=== PATIENT | male | born 1960 | race Two or more races ===

== ENCOUNTER 2023-05-02 08:43 | Outpatient (CLI) | payer OTHER | END 2023-05-02 08:57 | disposition home or self-care (01) | LOC: SONOGRAMA 08:43 | PROVIDERS: ATTEND Internal Medicine | DX: R10.9 Unspecified abdominal pain (principal); R07.9 Chest pain, unspecified ==

== ENCOUNTER 2024-06-03 11:54 | Inpatient (IN) | payer OTHER ==
[~2024-06-03] VITALS: Ht 175.3 cm; Wt 83.9 kg
[2024-06-03 12:42] LABS: D DIMER 2.82 MG/L; INR 1.09; PROTHROMBIN TIME 11.8 SECONDS (9.0-11.5)
[2024-06-03 12:44] LABS: HEMATOCRIT 27.3 % (39.0-48.0); MEAN CELL VOLUME 86.5 fL (80.0-100.00); MEAN CORPUSCULAR HGB CONC 28.9 g/dl (32.0-36.0); RED BLOOD COUNT 3.16 M/uL (4.00-6.00); RED CELL DISTRIBUTION WIDTH 21.6 % (11.5-14.5)
[2024-06-03 12:45] LABS: ERYTHROCYTE SEDIMENTATION RATE 30 mm/hr
[2024-06-03 13:16] LABS: PLATELET COUNT 32 K/uL (150-450)
[2024-06-03 13:17] LABS: HEMOGLOBIN 7.9 g/dL (13-16.00)
[2024-06-03 13:53] LABS: ALBUMIN 3.9 gm/dL (3.4-5.0); BILIRUBIN TOTAL 0.48 mg/dL (0.3-1.2); CALCIUM 9.6 mg/dL (8.5-10.1); CREATININE SERUM 1.09 mg/dL (0.70-1.30); GFR 67.89; GLOBULINA 3.8 G/DL (2.4-3.5); POTASSIUM 3.85 mEq/L (3.5-5.1); TOTAL PROTEIN 7.7 gm/dL (6.4-8.2)
[2024-06-03 13:58] LABS: C-REACTIVE PROTEIN 1.59 MG/DL (0.00-0.29)
[2024-06-03] MEDS ORDERED: RINGERS SOLUTION,LACTATED 1,000 ML IV SCH (15:30)
[2024-06-03 16:00] VITALS: BP 118/72; O2SAT 95
[2024-06-03] MEDS ORDERED: HYDROXYUREA 500 MG CAP PO SCH (17:00)
[2024-06-04 08:57] VITALS: BP 116/75; O2SAT 98
[2024-06-04] MEDS ORDERED: VITAMIN B COMPLEX 1 EACH PO SCH (09:00)
[2024-06-04 16:35] VITALS: BP 117/70; O2SAT 97
[2024-06-04 21:53] LABS: HEMATOCRIT 26.1 % (39.0-48.0); MEAN CELL VOLUME 83.9 fL (80.0-100.00); MEAN CORPUSCULAR HGB CONC 30.8 g/dl (32.0-36.0); RED BLOOD COUNT 3.11 M/uL (4.00-6.00); RED CELL DISTRIBUTION WIDTH 21.3 % (11.5-14.5)
[2024-06-04 22:19] LABS: HEMOGLOBIN 8.1 g/dL (13-16.00); PLATELET COUNT 28 K/uL (150-450)
[2024-06-05] VITALS: BP 94/56; O2SAT 97
[2024-06-05 08:00] VITALS: BP 126/81; O2SAT 99
[2024-06-05 17:03] VITALS: BP 118/71; O2SAT 99
[2024-06-05] MEDS ORDERED: LORazepam 2 MG/ML VIAL IV PUSH NR (20:00)
[2024-06-05] MEDS ORDERED: KETOROLAC TROMETHAMINE 30 MG VIAL IV NR (20:00)
[2024-06-06 00:44] VITALS: BP 115/76; O2SAT 100
[2024-06-06 08:00] VITALS: BP 131/84; O2SAT 99
[2024-06-06 08:40] LABS: HEMATOCRIT 26.5 % (39.0-48.0); MEAN CELL VOLUME 84.3 fL (80.0-100.00); MEAN CORPUSCULAR HGB CONC 31.1 g/dl (32.0-36.0); RED BLOOD COUNT 3.15 M/uL (4.00-6.00)
[2024-06-06 10:08] LABS: HEMOGLOBIN 8.2 g/dL (13-16.00)
[2024-06-06 10:22] LABS: PLATELET COUNT 25 K/uL (150-450)
[2024-06-06] MEDS ORDERED: HYDREA500 M1 PO (11:12)
[2024-06-06] MEDS ORDERED: B Complex PO (11:12)
[2024-06-07] MEDS ORDERED: IRON236 MG (10:07)
== END 2024-06-06 12:17 | disposition home or self-care (01) | DRG 836 ==
LOC: MEDJ 11:54 → SURH 14:05 → SEC-K 14:05 → SURH 14:59
PROVIDERS: ADMIT Internal Medicine Hematology & Oncology; ATTEND Internal Medicine Hematology & Oncology
PROC: 30233N1 Transfusion of Nonautologous Red Blood Cells into Peripheral Vein, Percutaneous Approach (ICD-10-PCS; principal; 2024-06-04)
DX: C92.00 Acute myeloblastic leukemia, not having achieved remission (principal); D63.0 Anemia in neoplastic disease; D69.6 Thrombocytopenia, unspecified

== ENCOUNTER 2024-06-07 09:49 | Inpatient (IN) | payer OTHER ==
[~2024-06-07] VITALS: Ht 175.3 cm; Wt 85.7 kg
[~2024-06-07 09:49] MED LIST: B Complex PO; HYDREA500 M1 PO
[2024-06-07] MEDS ORDERED: IRON236 MG (10:07)
--- NOTE | 2024-06-07 10:08 | NUR ---
PTE ALERTA Y ORIETADO X3 SALIO EN LE [facility] DE [place] POR ROLAND INTEVENCIO Y EMPEZO CON VOMITOS Y EL ULTIMO FUE ESTA MANANA A LAS 8, SE LE INOCENTE S/V Y SE UBICA EN K9
[2024-06-07] MEDS ORDERED: ONDANSETRON HCL 2 MG/ML VIAL IV STA (10:13)
[2024-06-07] MEDS ORDERED: 0.9 % SODIUM CHLORIDE 1,000 ML IV STA (10:13)
[2024-06-07] MEDS ORDERED: ONDANSETRON HCL 2 MG/ML VIAL ONE (10:19)
--- NOTE | 2024-06-07 10:30 | NUR ---
PTE ALERTA Y ORIENTADO X3 ES EVALUDO POR EL DR. FLORES. SE OIRNETA SOBRE TRATAMIENTO, VERBALIZA ENTENDER. SE CANALIZA, COLECTAN MUESTRAS DE LAB Y SE ADMINISTRA MEDICAMNETO ISAAC ORDEN MEDICA BAJO MEDIDAS ASEPTICAS. PENDIENTE SONCULTA CON DR. REZA RANGEL.
[2024-06-07] MEDS ORDERED: LIDOCAINE HCL 1%/EPINEPHRINE 20ML VIAL IJ ONE (10:33)
[2024-06-07] MEDS ORDERED: EPINEPHRINE HCL/PF 1 MG/ML AMPUL ONE (10:34)
[2024-06-07 11:06] LABS: MEAN CELL VOLUME 84.7 fL (80.0-100.00); MEAN CORPUSCULAR HGB CONC 29.7 g/dl (32.0-36.0); RED BLOOD COUNT 3.31 M/uL (4.00-6.00); RED CELL DISTRIBUTION WIDTH 20.5 % (11.5-14.5)
[2024-06-07 11:46] LABS: HEMOGLOBIN 8.3 g/dL (13-16.00)
[2024-06-07 11:47] LABS: PLATELET COUNT 37 K/uL (150-450)
[2024-06-07 11:58] LABS: ALBUMIN 3.6 gm/dL (3.4-5.0); BILIRUBIN TOTAL 0.64 mg/dL (0.3-1.2); CALCIUM 9.6 mg/dL (8.5-10.1); GFR 74.99; GLOBULINA 3.7 G/DL (2.4-3.5); POTASSIUM 3.65 mEq/L (3.5-5.1); TOTAL PROTEIN 7.3 gm/dL (6.4-8.2)
[2024-06-07] MEDS ORDERED: ACETAMINOPHEN 500 MG GEL..CAP PO ONE (12:51)
[2024-06-07 14:07] LABS: PH,URINE 6.5 (5.0-8.0); URINE APPEARANCE Clear; URINE BILIRRUBIN Negative (NEGATIVE); URINE BLOOD Trace; URINE COLOR Yellow; URINE GLUCOSE Negative (NEGATIVE); URINE KETONE Negative (NEGATIVE); URINE LEUKOCYTE Negative; URINE NITRATE Negative
[2024-06-07 14:10] LABS: URINE BACTERIA 24.4 uL (0.0-1933); URINE CAST 8.98 uL (0.0-1.40); URINE EPITHELIAL CELLS 39.8 uL (0.0-38.8); URINE RBC 5.4 uL (0.0-20.8); URINE WBC 12.3 uL (0.0-23.2)
[2024-06-07 14:53] LABS: URINE PROTEIN 100 (NEGATIVE)
[2024-06-07] MEDS ORDERED: PANTOPRAZOLE SODIUM 40 MG/VIAL VIAL IV SCH (17:17)
[2024-06-07] MEDS ORDERED: 0.9 % SODIUM CHLORIDE 1,000 ML IV SCH (17:30)
[2024-06-07] MEDS ORDERED: MULTIVIT INFUSN,ADULT 4,VIT K 10 ML VIAL IV ONE (17:30)
[2024-06-07] MEDS ORDERED: 0.9 % SODIUM CHLORIDE 1,000 ML IV ONE (17:30)
[2024-06-07] MEDS ORDERED: MORPHINE SULFATE 2 MG/ML CARTRIDGE IV PRN (17:30)
[2024-06-07] MEDS ORDERED: ONDANSETRON HCL 4 MG in 0.9 % SODIUM CHLORIDE 50 ML IV PRN (17:30)
[2024-06-07] MEDS ORDERED: PIPERACILLIN/TAZOBACTAM SODIUM 3.375 GM in DEXTROSE 5 % IN WATER 100 ML IV SCH (18:00)
[2024-06-07] MEDS ORDERED: PIPERACILLIN/TAZOBACTAM SODIUM 3.375 GM VIAL IV ONE (18:06)
[2024-06-07] MEDS ORDERED: ACETAMINOPHEN 500 MG GEL..CAP PO PRN (19:00)
[2024-06-07 19:26] VITALS: BP 128/81; O2SAT 96
[2024-06-07 19:55] LABS: D DIMER 3.91 MG/L; INR 1.15; PARTIAL THROMBOPLASTIN TIME 29.6 SECONDS (22.0-34.0); PROTHROMBIN TIME 12.4 SECONDS (9.0-11.5)
[2024-06-07] MEDS ORDERED: DEXAMETHASONE SODIUM PHOSPHATE 4 MG/ML VIAL IV STA (20:47)
[2024-06-07] MEDS ORDERED: DEXAMETHASONE SODIUM PHOSPHATE 4 MG/ML VIAL IV SCH (21:00)
[2024-06-07 21:58] VITALS: BP 119/76; O2SAT 95
[2024-06-07 23:00] VITALS: BP 125/72; O2SAT 98
[2024-06-08] VITALS (13 sets, daily range): BP systolic 99–154; BP diastolic 62–97; O2SAT 95–100
[2024-06-08] MEDS ORDERED: INSULIN LISPRO 1,000 UNIT/10 ML UNITS SUBCUTANEO ONE (01:34)
[2024-06-08] MEDS ORDERED: PIPERACILLIN/TAZOBACTAM SODIUM 3.375 GM VIAL IV ONE ×3 (01:42→16:53)
[2024-06-08] MEDS ORDERED: FUROsemide 20 MG/2 ML VIAL ONE (08:38)
[2024-06-08] MEDS ORDERED: FUROsemide 20 MG/2 ML VIAL IV ONE (08:45)
[2024-06-08 08:57] LABS: ABG PH 7.429 (7.35-7.45); ABG PO2 107.1 mmHg (80-100); ABG pCO2 37.4 mmHg (35-45); BASE EXCESS 0.2 mmol/l; BICARBONATE 24.2 mmol/l (23-25); SaO2 98.3 %; Tco2 25.3 mmol/l
[2024-06-08] MEDS ORDERED: DEXAMETHASONE SODIUM PHOSP/PF 10 MG/ML VIAL IV ONE (10:15)
[2024-06-08] MEDS ORDERED: PROPOFOL 10,000 MCG/ML VIAL ONE (12:21)
[2024-06-08] MEDS ORDERED: PROPOFOL 100 ML IV SCH (12:45)
[2024-06-08 13:30] LABS: HEMATOCRIT 27.7 % (39.0-48.0); MEAN CELL VOLUME 84.4 fL (80.0-100.00); MEAN CORPUSCULAR HGB CONC 30.5 g/dl (32.0-36.0); RED BLOOD COUNT 3.29 M/uL (4.00-6.00); RED CELL DISTRIBUTION WIDTH 18.7 % (11.5-14.5)
[2024-06-08 13:42] LABS: INR 1.15; PARTIAL THROMBOPLASTIN TIME 30.1 SECONDS (22.0-34.0); PROTHROMBIN TIME 12.4 SECONDS (9.0-11.5)
[2024-06-08 14:05] LABS: ALBUMIN 3.3 gm/dL (3.4-5.0); BILIRUBIN TOTAL 0.79 mg/dL (0.3-1.2); CREATININE SERUM 1.19 mg/dL (0.70-1.30); GFR 61.35; GLOBULINA 3.5 G/DL (2.4-3.5); MAGNESIUM 1.8 mg/dL (1.8-2.4); PHOSPHOROUS 4.5 mg/dL (2.5-4.9); POTASSIUM 3.47 mEq/L (3.5-5.1); TOTAL PROTEIN 6.8 gm/dL (6.4-8.2)
[2024-06-08 14:52] LABS: MEAN CORPUSCULAR HEMOGLOBIN 25.8 pg (27.00-32.0)
[2024-06-08 14:54] LABS: HEMOGLOBIN 8.5 g/dL (13-16.00)
[2024-06-08 14:56] LABS: PLATELET COUNT 58 K/uL (150-450)
[2024-06-08 15:50] LABS: allen test SATISFACTORY; mode NASAL CANNULA; o2 32 %; puncture site RADIAL RIGHT
[2024-06-08] MEDS ORDERED: HEPARIN SODIUM,PORCINE 5,000 UNITS/ML VIAL IV NR (16:00)
[2024-06-08] MEDS ORDERED: LIDOCAINE HCL 1% 10ML VIAL PERCUT NR (16:00)
[2024-06-08 16:03] LABS: ABG PH 7.465 (7.35-7.45); ABG pCO2 32.9 mmHg (35-45); BASE EXCESS 0.2 mmol/l; BICARBONATE 23.1 mmol/l (23-25); Tco2 24.1 mmol/l
[2024-06-08 16:04] LABS: allen test SATISFACTORY; mode MECHANI VENTILATOR; o2 100 %; puncture site RADIAL RIGHT
[2024-06-08] MEDS ORDERED: DEXAMETHASONE SODIUM PHOSPHATE 4 MG/ML VIAL IV SCH (17:00)
[2024-06-08] MEDS ORDERED: POLYVINYL ALCOHOL 15 ML DROPS OP SCH (17:00)
[2024-06-08] MEDS ORDERED: CHLORHEXIDINE GLUCONATE 15ML BRUSH KIT MM SCH (17:00)
[2024-06-08] MEDS ORDERED: CYTARABINE IV SCH (17:00)
[2024-06-08] MEDS ORDERED: LORazepam 2 MG/ML VIAL IV PUSH PRN (18:15)
[2024-06-08] MEDS ORDERED: LevETIRAcetam 500 MG/5 ML VIAL IV ONE (20:32)
[2024-06-08] MEDS ORDERED: LevETIRAcetam 500 MG/5 ML VIAL IV SCH (21:00)
[2024-06-09] VITALS (14 sets, daily range): BP systolic 114–148; BP diastolic 84–97; O2SAT 100
[2024-06-09 08:20] LABS: ABG PH 7.435 (7.35-7.45); ABG PO2 152.4 mmHg (80-100); ABG pCO2 37.3 mmHg (35-45)
[2024-06-09 08:21] LABS: BASE EXCESS 0.5 mmol/l; BICARBONATE 24.4 mmol/l (23-25); SaO2 99.4 %; Tco2 25.6 mmol/l; allen test NO SATISFACTORY; mode MECHANI VENTILATOR; o2 50 %; puncture site RADIAL RIGHT
[2024-06-09 16:51] LABS: INR 1.17; PARTIAL THROMBOPLASTIN TIME 26.8 SECONDS (22.0-34.0); PROTHROMBIN TIME 12.6 SECONDS (9.0-11.5)
[2024-06-09 16:52] LABS: HEMATOCRIT 26.8 % (39.0-48.0); MEAN CELL VOLUME 85.1 fL (80.0-100.00); MEAN CORPUSCULAR HGB CONC 31.1 g/dl (32.0-36.0); RED BLOOD COUNT 3.15 M/uL (4.00-6.00); RED CELL DISTRIBUTION WIDTH 17.6 % (11.5-14.5)
[2024-06-09 16:59] LABS: ALBUMIN 3.1 gm/dL (3.4-5.0); BILIRUBIN TOTAL 0.59 mg/dL (0.3-1.2); CREATININE SERUM 1.51 mg/dL (0.70-1.30); GFR 46.61; GLOBULINA 3.3 G/DL (2.4-3.5); MAGNESIUM 2.6 mg/dL (1.8-2.4); PHOSPHOROUS 4.3 mg/dL (2.5-4.9); POTASSIUM 3.8 mEq/L (3.5-5.1); TOTAL PROTEIN 6.4 gm/dL (6.4-8.2)
[2024-06-09] MEDS ORDERED: DIPHENHYDRAMINE HCL 50 MG/ML VIAL 1ML IV SCH (17:00)
[2024-06-09] MEDS ORDERED: METHYLPREDNISOLONE SOD SUCC 40 MG VIAL IV SCH (17:00)
[2024-06-09] MEDS ORDERED: CALCIUM GLUCONATE 100 MG/ML VIAL IV SCH (17:12)
[2024-06-09 17:27] LABS: MEAN CORPUSCULAR HEMOGLOBIN 26.3 pg (27.00-32.0)
[2024-06-09 17:28] LABS: HEMOGLOBIN 8.3 g/dL (13-16.00); PLATELET COUNT 69 K/uL (150-450)
[2024-06-09] MEDS ORDERED: 0.9 % SODIUM CHLORIDE 250 ML IV ONE (18:00)
[2024-06-09] MEDS ORDERED: 0.9 % SODIUM CHLORIDE 1,000 ML IV ONE (18:00)
[2024-06-09] MEDS ORDERED: HEPARIN SODIUM,PORCINE 5,000 UNITS/ML VIAL ONE (18:01)
[2024-06-09] MEDS ORDERED: HEPARIN SODIUM,PORCINE 5,000 UNITS/ML VIAL IV NR (18:15)
[2024-06-09] MEDS ORDERED: FUROsemide 20 MG/2 ML VIAL IV NR (19:30)
[2024-06-10] VITALS (16 sets, daily range): BP systolic 102–143; BP diastolic 81–97; O2SAT 96–100
[2024-06-10 06:59] LABS: HEMATOCRIT 27.2 % (39.0-48.0); MEAN CELL VOLUME 85.6 fL (80.0-100.00); MEAN CORPUSCULAR HGB CONC 32.8 g/dl (32.0-36.0); RED BLOOD COUNT 3.18 M/uL (4.00-6.00); RED CELL DISTRIBUTION WIDTH 17.7 % (11.5-14.5)
[2024-06-10 07:44] LABS: HEMOGLOBIN 8.9 g/dL (13-16.00); MEAN CORPUSCULAR HEMOGLOBIN 27.9 pg (27.00-32.0); PLATELET COUNT 60 K/uL (150-450)
[2024-06-10 08:41] LABS: ABG PH 7.443 (7.35-7.45); ABG PO2 88.9 mmHg (80-100); ABG pCO2 38.8 mmHg (35-45); BASE EXCESS 1.9 mmol/l; BICARBONATE 25.9 mmol/l (23-25); SaO2 97.2 %; Tco2 27.1 mmol/l
[2024-06-10 09:35] LABS: CALCIUM 8.7 mg/dL (8.5-10.1); CREATININE SERUM 1.63 mg/dL (0.70-1.30); GFR 42.67; POTASSIUM 3.67 mEq/L (3.5-5.1)
[2024-06-10 11:24] LABS: allen test SATISFACTORY; mode MECHANI VENTILATOR; o2 35 %; puncture site RADIAL RIGHT
[2024-06-11] VITALS (11 sets, daily range): BP systolic 97–128; BP diastolic 76–92; O2SAT 99–100
[2024-06-11 03:38] LABS: HEMATOCRIT 28.1 % (39.0-48.0); MEAN CELL VOLUME 85.2 fL (80.0-100.00); MEAN CORPUSCULAR HEMOGLOBIN 27.2 pg (27.00-32.0); MEAN CORPUSCULAR HGB CONC 31.9 g/dl (32.0-36.0); RED CELL DISTRIBUTION WIDTH 17.5 % (11.5-14.5)
[2024-06-11 04:46] LABS: PLATELET COUNT 57 K/uL (150-450)
[2024-06-11 07:16] LABS: CALCIUM 8.3 mg/dL (8.5-10.1); CREATININE SERUM 2.03 mg/dL (0.70-1.30); GFR 33.13; POTASSIUM 3.45 mEq/L (3.5-5.1)
[2024-06-11] MEDS ORDERED: HEPARIN SODIUM,PORCINE 5,000 UNITS/ML VIAL ONE (09:01)
[2024-06-11 09:02] LABS: ABG PH 7.477 (7.35-7.45); ABG PO2 87.1 mmHg (80-100); ABG pCO2 39.6 mmHg (35-45); BASE EXCESS 4.8 mmol/l; BICARBONATE 28.6 mmol/l (23-25); SaO2 97.4 %; Tco2 29.8 mmol/l
[2024-06-11] MEDS ORDERED: DEXTROSE 5 % IN WATER 1,000 ML IV SCH (11:15)
[2024-06-11] MEDS ORDERED: POTASSIUM CHLORIDE 20MEQ/100ML H2O PB IV NR (12:15)
[2024-06-11 12:57] LABS: allen test SATISFACTORY; mode MECHANI VENTILATOR; o2 40 %; puncture site RADIAL RIGHT
[2024-06-11 13:55] LABS: HEMATOCRIT 29.9 % (39.0-48.0); HEMOGLOBIN 9.2 g/dL (13-16.00); MEAN CORPUSCULAR HEMOGLOBIN 26.8 pg (27.00-32.0); MEAN CORPUSCULAR HGB CONC 30.8 g/dl (32.0-36.0); RED BLOOD COUNT 3.44 M/uL (4.00-6.00); RED CELL DISTRIBUTION WIDTH 17.5 % (11.5-14.5)
[2024-06-11 15:15] LABS: PLATELET COUNT 43 K/uL (150-450)
[2024-06-11 22:06] LABS: HEMATOCRIT 29.2 % (39.0-48.0); HEMOGLOBIN 9.1 g/dL (13-16.00); MEAN CELL VOLUME 87.2 fL (80.0-100.00); MEAN CORPUSCULAR HEMOGLOBIN 27.1 pg (27.00-32.0); MEAN CORPUSCULAR HGB CONC 31.1 g/dl (32.0-36.0); RED BLOOD COUNT 3.35 M/uL (4.00-6.00); RED CELL DISTRIBUTION WIDTH 18.1 % (11.5-14.5)
[2024-06-11 22:46] LABS: PLATELET COUNT 66 K/uL (150-450)
[2024-06-12] VITALS (10 sets, daily range): BP systolic 84–108; BP diastolic 69–85; O2SAT 100
[2024-06-12] MEDS ORDERED: METOPROLOL TARTRATE 25 MG TABLET PO SCH (00:36)
[2024-06-12 07:08] LABS: MEAN CELL VOLUME 87.1 fL (80.0-100.00); MEAN CORPUSCULAR HGB CONC 31.9 g/dl (32.0-36.0); RED BLOOD COUNT 3.11 M/uL (4.00-6.00); RED CELL DISTRIBUTION WIDTH 17.5 % (11.5-14.5)
[2024-06-12 07:28] LABS: CREATININE SERUM 2.71 mg/dL (0.70-1.30); GFR 23.73; POTASSIUM 3.68 mEq/L (3.5-5.1)
[2024-06-12 07:59] LABS: HEMOGLOBIN 8.6 g/dL (13-16.00); MEAN CORPUSCULAR HEMOGLOBIN 27.6 pg (27.00-32.0); PLATELET COUNT 54 K/uL (150-450)
[2024-06-12] MEDS ORDERED: CEFTRIAXONE SODIUM 2,000 MG in 0.9 % SODIUM CHLORIDE 100 ML IV SCH (09:00)
[2024-06-12 13:09] LABS: ABG PH 7.518 (7.35-7.45); ABG PO2 114.2 mmHg (80-100); BASE EXCESS 4.5 mmol/l
[2024-06-12 13:11] LABS: allen test SATISFACTORY; mode MECHANI VENTILATOR; o2 40 %; puncture site RADIAL RIGHT
[2024-06-12 15:18] LABS: HEMATOCRIT 28.9 % (39.0-48.0); MEAN CELL VOLUME 88.4 fL (80.0-100.00); MEAN CORPUSCULAR HGB CONC 29.8 g/dl (32.0-36.0); RED BLOOD COUNT 3.27 M/uL (4.00-6.00); RED CELL DISTRIBUTION WIDTH 18.3 % (11.5-14.5)
[2024-06-12 15:31] LABS: ALBUMIN 2.4 gm/dL (3.4-5.0); BILIRUBIN TOTAL 0.39 mg/dL (0.3-1.2); CREATININE SERUM 2.6 mg/dL (0.70-1.30); GFR 24.9; GLOBULINA 2.3 G/DL (2.4-3.5); POTASSIUM 3.14 mEq/L (3.5-5.1); TOTAL PROTEIN 4.7 gm/dL (6.4-8.2)
[2024-06-12 15:37] LABS: HEMOGLOBIN 8.6 g/dL (13-16.00); MEAN CORPUSCULAR HEMOGLOBIN 26.2 pg (27.00-32.0); PLATELET COUNT 54 K/uL (150-450)
[2024-06-12] MEDS ORDERED: FUERA DE FORMULARIO 1 U FF NGT SCH (17:00)
[2024-06-12] MEDS ORDERED: LevETIRAcetam 100 MG/1 ML LIQUIDO PO SCH (21:00)
== END 2024-06-12 18:35 | disposition expired | DRG 840 ==
LOC: ER 09:50 → ICU-2 17:30 → ICU 06-08 12:14
PROVIDERS: Emergency Medicine; General Practice; Internal Medicine; ADMIT Internal Medicine Hematology & Oncology; ATTEND Internal Medicine Hematology & Oncology
PROC: BW28ZZZ Computerized Tomography (CT Scan) of Head (ICD-10-PCS; 2024-06-07)
PROC: BW40ZZZ Ultrasonography of Abdomen (ICD-10-PCS; 2024-06-07)
PROC: 0BH17EZ Insertion of Endotracheal Airway into Trachea, Via Natural or Artificial Opening (ICD-10-PCS; principal; 2024-06-08)
PROC: 5A1955Z Respiratory Ventilation, Greater than 96 Consecutive Hours (ICD-10-PCS; 2024-06-08)
PROC: 05HM33Z Insertion of Infusion Device into Right Internal Jugular Vein, Percutaneous Approach (ICD-10-PCS; 2024-06-08)
PROC: 02HV33Z Insertion of Infusion Device into Superior Vena Cava, Percutaneous Approach (ICD-10-PCS; 2024-06-08)
PROC: 30233R1 Transfusion of Nonautologous Platelets into Peripheral Vein, Percutaneous Approach (ICD-10-PCS; 2024-06-08)
PROC: 30233N1 Transfusion of Nonautologous Red Blood Cells into Peripheral Vein, Percutaneous Approach (ICD-10-PCS; 2024-06-08)
PROC: B030ZZZ Magnetic Resonance Imaging (MRI) of Brain (ICD-10-PCS; 2024-06-08)
PROC: BW21ZZZ Computerized Tomography (CT Scan) of Abdomen and Pelvis (ICD-10-PCS; 2024-06-09)
PROC: BW24YZZ Computerized Tomography (CT Scan) of Chest and Abdomen using Other Contrast (ICD-10-PCS; 2024-06-09)
PROC: BW28ZZZ Computerized Tomography (CT Scan) of Head (ICD-10-PCS; 2024-06-11)
DX: C91.10 Chronic lymphocytic leukemia of B-cell type not having achieved remission (principal); J96.00 Acute respiratory failure, unspecified whether with hypoxia or hypercapnia; I69.151 Hemiplegia and hemiparesis following nontraumatic intracerebral hemorrhage affecting right dominant side; C79.31 Secondary malignant neoplasm of brain; N17.9 Acute kidney failure, unspecified; C80.1 Malignant (primary) neoplasm, unspecified; D63.0 Anemia in neoplastic disease; D69.6 Thrombocytopenia, unspecified; E86.0 Dehydration; K29.00 Acute gastritis without bleeding; R41.82 Altered mental status, unspecified; I66.3 Occlusion and stenosis of cerebellar arteries; I46.9 Cardiac arrest, cause unspecified; I95.89 Other hypotension
CPT/HCPCS: 70545